=== PATIENT | male | born 1950 | race African-American/Black ===

== ENCOUNTER 2018-04-08 20:36 | Inpatient (IN) | payer OTHER, MEDICAID ==
[~2018-04-08] VITALS: Ht 167.6 cm; Wt 90.7 kg
[~2018-04-08 20:36] MED LIST: ALLO100T; AMLO10TA80; ASPI-1158; ATOR10TA PO; Benazepril Hcl PO; CLOP75TA16 PO; COR3 PO; FLUT1DIS3; HALO2TAB; MULT-1063; NITR0.4T49; ZOLP12.543
[2018-04-08] MEDS ORDERED: MORPHINE SULFATE 2 MG/ML CPJ (NOT FOR IM USE) IV STA (22:33)
[2018-04-08] MEDS ORDERED: ASPIRIN 81MG TABLET PO ONE (22:45)
[2018-04-08] MEDS ORDERED: LEVOFLOXACIN 750MG PREMIX 150 ML IV ONE (22:45)
[2018-04-08 23:27] LABS: BASOPHILS % 0.3 % (0.0-2.0); EOSINOPHILS % 0.1 % (0.0-5.0); HEMATOCRIT. 34.2 % (42.0-52.0); HEMOGLOBIN. 10.8 g/dL (14.0-18.0); LYMPHOCYTES % 11.8 % (20.0-50.0); MEAN CORPUSCULAR HEMOGLOBIN 24.4 pg (28.0-32.0); MEAN CORPUSCULAR VOLUME 77.3 fL (80.0-94.0); MEAN PLATELET VOLUME 8.2 fl (7.4-10.4); MONOCYTES % 13.7 % (2.0-8.0); NEUTROPHILS % 74.1 % (40.0-76.0); PLATELET 214 x1000/uL (130-400); RED BLOOD CELL COUNT 4.43 mill/uL (4.7-6.1); RED CELL DISTRIBUTION WIDTH 22.1 % (11.6-14.6)
[2018-04-08 23:30] LABS: CHLORIDE 102 mEq/L (98-107)
[2018-04-08 23:33] LABS: INR 2.6; PROTHROMBIN TIME 27.3 sec (9.4-11.6)
[2018-04-08 23:35] LABS: ETHANOL BLOOD < 10 mg/dL
[2018-04-09] VITALS (7 sets, daily range): BP systolic 112–139; BP diastolic 63–81
[2018-04-09 00:58] LABS: PLATELET ESTIMATE NORMAL
[2018-04-09 01:27] LABS: CLARITY URINE TURBID (CLEAR); KETONES URINE 1+ (NEGATIVE); LEUKOCYTE ESTERASE URINE 3+ (NEGATIVE); NITRITE URINE POSITIVE (NEGATIVE); OCCULT BLOOD URINE 3+ (NEGATIVE); PROTEIN URINE 3+ (NEGATIVE); SPECIFIC GRAVITY URINE 1.016 (1.005-1.030)
[2018-04-09 01:35] LABS: COLOR URINE BLOODY (YELLOW)
[2018-04-09 01:47] LABS: *AMPHETAMINES SCREEN URINE NEGATIVE (NEGATIVE); *BARBITURATES SCREEN URINE NEGATIVE (NEGATIVE); *BENZODIAZEPINES SCREEN URINE NEGATIVE (NEGATIVE); *COCAINE SCREEN URINE NEGATIVE (NEGATIVE)
[2018-04-09 01:48] LABS: CANNABINOID URINE SCREEN NEGATIVE (NEGATIVE); METHADONE URINE SCREEN NEGATIVE (NEGATIVE); OPIATES URINE SCREEN PRESUMTIVE POSITIVE (NEGATIVE); PHENCYCLIDINE URINE SCREEN NEGATIVE (NEGATIVE)
[2018-04-09] MEDS ORDERED: DOCUSATE SODIUM 100MG CAPSULE PO PRN (08:00)
[2018-04-09] MEDS ORDERED: ACETAMINOPHEN 325MG TABLET PO PRN (08:00)
[2018-04-09] MEDS ORDERED: DIPHENHYDRAMINE 50MG/ML VIAL IV PRN (08:00)
[2018-04-09] MEDS ORDERED: MORPHINE SULFATE 4 MG/ML CPJ (NOT FOR IM USE) IV PRN (08:00)
[2018-04-09] MEDS ORDERED: ONDANSETRON HCL 4MG/2ML VIAL IV PRN (08:00)
[2018-04-09] MEDS ORDERED: CLONIDINE 0.1MG TABLET PO PRN (08:00)
[2018-04-09] MEDS ORDERED: AMLODIPINE 10MG TABLET PO SCH (09:00)
[2018-04-09] MEDS ORDERED: FUROSEMIDE 40MG/4ML VIAL IVP NR (10:45)
[2018-04-09] MEDS ORDERED: IPRATROPIUM/ALBUTEROL 0.5-3(2.5)MG/3ML NEB HHN PRN (10:45)
[2018-04-09] MEDS ORDERED: WARF-67 PO (10:56)
[2018-04-09] MEDS ORDERED: PHYTONADIONE 10MG/ML AMP SUBCUT NR (13:15)
[2018-04-09] MEDS: BUDESONIDE 0.5MG/2ML NEB HHN SCH ×2 (13:56→21:20)
[2018-04-09] MEDS: IPRATROPIUM/ALBUTEROL 0.5-3(2.5)MG/3ML NEB HHN SCH ×2 (13:57→21:20)
[2018-04-09 17:21] LABS: T4 FREE 1.39 ng/dL (0.76-1.46)
[2018-04-10] MEDS ORDERED: PHYTONADIONE 10MG/ML AMP SUBCUT NR (05:00)
[2018-04-10] MEDS ORDERED: LEVOFLOXACIN 500MG PREMIX 100 ML IV SCH (23:00)
== END 2018-04-09 23:09 | disposition short-term general hospital (02) | DRG 871 ==
LOC: ER 20:51 → 8WST 04-09 02:31 → ENRESERV 04-09 03:58
PROVIDERS: ADMIT Hospitalist; ATTEND Hospitalist
DX: A41.9 Sepsis, unspecified organism (principal); J96.00 Acute respiratory failure, unspecified whether with hypoxia or hypercapnia; N39.0 Urinary tract infection, site not specified; I13.0 Hypertensive heart and chronic kidney disease with heart failure and stage 1 through stage 4 chronic kidney disease, or unspecified chronic kidney disease; E44.0 Moderate protein-calorie malnutrition; D68.59 Other primary thrombophilia; I47.2 Ventricular tachycardia; D68.9 Coagulation defect, unspecified; D63.1 Anemia in chronic kidney disease; K70.31 Alcoholic cirrhosis of liver with ascites; M10.9 Gout, unspecified; N18.9 Chronic kidney disease, unspecified; J44.9 Chronic obstructive pulmonary disease, unspecified; I48.91 Unspecified atrial fibrillation; I50.9 Heart failure, unspecified; D64.9 Anemia, unspecified; E78.5 Hyperlipidemia, unspecified; E11.51 Type 2 diabetes mellitus with diabetic peripheral angiopathy without gangrene; E11.22 Type 2 diabetes mellitus with diabetic chronic kidney disease; F10.10 Alcohol abuse, uncomplicated; F20.9 Schizophrenia, unspecified; K43.9 Ventral hernia without obstruction or gangrene; T45.515A Adverse effect of anticoagulants, initial encounter; Y92.89 Other specified places as the place of occurrence of the external cause; Z87.891 Personal history of nicotine dependence; Z90.49 Acquired absence of other specified parts of digestive tract; Z68.32 Body mass index [BMI] 32.0-32.9, adult; Z79.899 Other long term (current) drug therapy; Z79.02 Long term (current) use of antithrombotics/antiplatelets; Z79.01 Long term (current) use of anticoagulants; Z89.511 Acquired absence of right leg below knee
CPT/HCPCS: 36415; 71045; 71250; 74176; 80053; 80061; 80305; 81003; 83605; 83690; 83735; 83880; 84439; 84443; 84484; 85025; 85379; 85610; 87040; 87077; 87086; 87186; 93306; 99285; G0482; J1940; J1956; J2270; J7620; J7626

== ENCOUNTER 2018-05-05 06:18 | Inpatient (IN) | payer OTHER, MEDICAID ==
[~2018-05-05] VITALS: Ht 177.8 cm; Wt 98.9 kg
[~2018-05-05 06:18] MED LIST changes: -ALLO100T; +ALLO100T PO; -AMLO10TA80; +AMLO10TA80 PO; -ASPI-1158; +ASPI-1158 PO; +WARF-67 PO
[2018-05-05] MEDS ORDERED: SODIUM CHLORIDE 0.9% 1,000 ML IV ONE (06:38)
[2018-05-05 07:46] LABS: HEMATOCRIT. 30.3 % (42.0-52.0); HEMOGLOBIN. 9.6 g/dL (14.0-18.0); MEAN CORPUSCULAR HEMOGLOBIN 24.7 pg (28.0-32.0); MEAN CORPUSCULAR VOLUME 78.2 fL (80.0-94.0); MEAN PLATELET VOLUME 7.9 fl (7.4-10.4); PLATELET 291 x1000/uL (130-400); RED BLOOD CELL COUNT 3.87 mill/uL (4.7-6.1); RED CELL DISTRIBUTION WIDTH 21.3 % (11.6-14.6)
[2018-05-05 07:54] LABS: CHLORIDE 105 mEq/L (98-107)
[2018-05-05 08:00] LABS: PARTIAL THROMBOPLASTIN TIME 50.6 sec (23.4-31.0); PROTHROMBIN TIME 45.2 sec (9.4-11.6)
[2018-05-05 08:12] LABS: INR 4.3
[2018-05-05] MEDS ORDERED: PIPERACILLIN/TAZOBACTAM 3.375GM/50ML PREMIX IV ONE (08:15)
[2018-05-05] MEDS ORDERED: VANCOMYCIN 1 G PREMIX 200 ML IV SCH (08:15)
[2018-05-05 08:30] LABS: NUCLEATED RED BLOOD CELLS 1 /100 WBC; PLATELET ESTIMATE NORMAL
[2018-05-05] MEDS ORDERED: PIPERACILLIN/TAZ 3.375G PREMIX 50 ML IV SCH (08:30)
[2018-05-05] MEDS ORDERED: IPRATROPIUM/ALBUTEROL 0.5-3(2.5)MG/3ML NEB INH PRN (10:15)
[2018-05-05] MEDS ORDERED: MAGNESIUM/ALUMINUM HYDROXIDE/SIMETHICONE 30ML UDC PO PRN (10:15)
[2018-05-05] MEDS ORDERED: ACETAMINOPHEN 325MG TABLET PO PRN (10:15)
[2018-05-05] MEDS ORDERED: DOCUSATE SODIUM 100MG CAPSULE PO PRN (10:15)
[2018-05-05] MEDS ORDERED: TRAMADOL 50MG TABLET PO PRN (10:15)
[2018-05-05] MEDS ORDERED: LORAZEPAM 0.5MG TABLET PO PRN (10:15)
[2018-05-05] MEDS ORDERED: DIPHENHYDRAMINE 50MG/ML VIAL IV PRN (10:15)
[2018-05-05] MEDS ORDERED: NA PHOS,M-B/NA PHOS,DI-BA ENEMA 118ML PR PRN (10:15)
[2018-05-05] MEDS ORDERED: ONDANSETRON HCL 4MG/2ML VIAL IV PRN (10:15)
[2018-05-05] MEDS ORDERED: NITROGLYCERIN 0.4MG TABLET SL SL PRN (10:15)
[2018-05-05] MEDS ORDERED: CLONIDINE 0.1MG TABLET PO PRN (10:15)
[2018-05-05] MEDS ORDERED: GUAIFENESIN 200MG/10ML SUGAR FREE UDC PO PRN (10:15)
[2018-05-05 12:00] VITALS: BP 111/69
[2018-05-05] MEDS ORDERED: ONDANSETRON 4MG ODT PO PRN (12:00)
[2018-05-05] MEDS: GUAIFENESIN/DM 600MG/30MG ER TAB 12HR PO SCH ×2 (13:05→21:33)
[2018-05-05] MEDS: PIPERACILLIN/TAZ 2.25G PREMIX 50 ML IV SCH ×2 (13:41→17:22)
[2018-05-05] MEDS ORDERED: VANCOMYCIN 1500MG in DEXTROSE 5% WATER 250ML IV NR (14:00)
[2018-05-05 16:00] VITALS: BP 114/68
[2018-05-05 17:19] LABS: CREATINE KINASE MB FRACTION 1.7 ng/mL (0.5-3.6)
[2018-05-05] MEDS: CARVEDILOL 3.125 MG TABLET PO SCH (17:23)
[2018-05-05] MEDS: MORPHINE SULFATE 4 MG/ML CPJ (NOT FOR IM USE) IV PRN ×2 (17:24→21:42)
[2018-05-05 20:09] VITALS: BP 108/60
[2018-05-05] MEDS ORDERED: FAMOTIDINE 20MG TABLET PO SCH (21:00)
[2018-05-05] MEDS ORDERED: ZOLPIDEM TARTRATE 5MG TABLET PO PRN (21:00)
[2018-05-05] MEDS: ASCORBIC ACID 500 MG TABLET PO SCH (21:33)
[2018-05-05 23:57] VITALS: BP 109/66
[2018-05-06] MEDS: PIPERACILLIN/TAZ 2.25G PREMIX 50 ML IV SCH ×3 (00:01→13:06)
[2018-05-06 01:06] LABS: CREATINE KINASE MB FRACTION 1.6 ng/mL (0.5-3.6)
[2018-05-06 04:00] VITALS: BP 102/69
[2018-05-06] MEDS: CARVEDILOL 3.125 MG TABLET PO SCH (06:00)
[2018-05-06 06:17] LABS: INR 3.4; PROTHROMBIN TIME 35.4 sec (9.4-11.6)
[2018-05-06] MEDS: MORPHINE SULFATE 4 MG/ML CPJ (NOT FOR IM USE) IV PRN (06:40)
[2018-05-06 08:00] VITALS: BP 109/71
[2018-05-06] MEDS ORDERED: CLOPIDOGREL 75MG TABLET PO SCH (09:00)
[2018-05-06] MEDS ORDERED: ZINC SULFATE 220 MG ( 50 ) CAPSULE PO SCH (09:00)
[2018-05-06] MEDS ORDERED: ASPIRIN 325MG EC TABLET PO SCH (09:00)
[2018-05-06] MEDS ORDERED: VANCOMYCIN 1250MG in DEXTROSE 5% WATER 250ML IV SCH (09:00)
[2018-05-06] MEDS: ASCORBIC ACID 500 MG TABLET PO SCH (10:06)
[2018-05-06] MEDS: GUAIFENESIN/DM 600MG/30MG ER TAB 12HR PO SCH (10:06)
[2018-05-06 12:00] VITALS: BP 105/69
[2018-05-06 16:00] VITALS: BP 115/67
[2018-05-06 17:57] VITALS: BP 115/67
[2018-05-07] MEDS ORDERED: VANCOMYCIN 1 G PREMIX 200 ML IV SCH (11:00)
== END 2018-05-06 19:20 | disposition short-term general hospital (02) | DRG 871 ==
LOC: ER 06:46 → 7WST 08:25 → ENRESERV 10:26
PROVIDERS: ADMIT Psychiatry & Neurology Neurology; ATTEND Psychiatry & Neurology Neurology
DX: A41.9 Sepsis, unspecified organism (principal); E43 Unspecified severe protein-calorie malnutrition; J18.9 Pneumonia, unspecified organism; N17.0 Acute kidney failure with tubular necrosis; D68.9 Coagulation defect, unspecified; E78.00 Pure hypercholesterolemia, unspecified; E78.5 Hyperlipidemia, unspecified; I48.91 Unspecified atrial fibrillation; I95.9 Hypotension, unspecified; I50.9 Heart failure, unspecified; I73.9 Peripheral vascular disease, unspecified; I11.0 Hypertensive heart disease with heart failure; T45.515A Adverse effect of anticoagulants, initial encounter; Y92.89 Other specified places as the place of occurrence of the external cause; Z74.01 Bed confinement status; Z89.512 Acquired absence of left leg below knee; Z79.899 Other long term (current) drug therapy; Z90.49 Acquired absence of other specified parts of digestive tract; Z68.31 Body mass index [BMI] 31.0-31.9, adult
CPT/HCPCS: 36415; 71045; 80053; 80061; 82550; 82553; 83036; 83605; 83690; 83880; 84484; 85025; 85610; 85730; 87040; 93005; 93306; 93970; 96361; 96365; 96366; 96368; 99285; J2270; J2543; J3370; J7030; J7060; J7620

== ENCOUNTER 2019-04-29 15:17 | Emergency (ER) | payer OTHER ==
[~2019-04-29] VITALS: Ht 180.3 cm; Wt 72.0 kg
[~2019-04-29 15:17] MED LIST changes: -CLOP75TA16 PO; +CLOP75TA4 PO
[2019-04-29] MEDS ORDERED: ACETAMINOPHEN 325MG TABLET PO ONE (21:30)
[2019-04-29 21:57] VITALS: BP 180/103
== END 2019-04-29 21:57 | disposition home or self-care (01) ==
LOC: ER 15:17
DX: S93.491A Sprain of other ligament of right ankle, initial encounter (principal); W50.2XXA Accidental twist by another person, initial encounter; Y93.89 Activity, other specified; Y92.89 Other specified places as the place of occurrence of the external cause; Y99.8 Other external cause status; F17.200 Nicotine dependence, unspecified, uncomplicated; J44.9 Chronic obstructive pulmonary disease, unspecified; I50.9 Heart failure, unspecified; Z79.82 Long term (current) use of aspirin; Z79.899 Other long term (current) drug therapy
CPT/HCPCS: 73610; 99283

== ENCOUNTER 2020-03-04 08:44 | Emergency (ER) | payer OTHER ==
[~2020-03-04] VITALS: Ht 180.3 cm; Wt 65.7 kg
[2020-03-04] MEDS ORDERED: KETOROLAC 30MG/ML VIAL IM ONE (09:00)
[2020-03-04 10:44] VITALS: BP 160/95
== END 2020-03-04 10:47 | disposition home or self-care (01) ==
LOC: ER 08:50
DX: M25.511 Pain in right shoulder (principal); K05.319 Chronic periodontitis, localized, unspecified severity; I10 Essential (primary) hypertension; I25.2 Old myocardial infarction; Z79.82 Long term (current) use of aspirin; Z79.899 Other long term (current) drug therapy
CPT/HCPCS: 71045; 73000; 96372; 99284